=== PATIENT | male | born 1990 | race African-American/Black ===

== ENCOUNTER 2018-08-26 20:44 | Emergency (ER) | payer SELFPAY ==
--- NOTE | 2018-08-26 22:03 | EDM.PDOC ---
ED HPI GENERAL MEDICAL PROBLEM - General Chief Complaint: Gastrointestinal Problem Stated Complaint: NAUSEA LIGHT HEADED Time Seen by Provider: 08/26/18 20:48 Source of Information: Reports: Patient History Limitations: Reports: No Limitations - History of Present Illness INITIAL COMMENTS - FREE TEXT/NARRATIVE: This is a 28-year-old male. Since Wednesday night he's been having some nausea and lightheadedness and he says he's been getting some migraines but there is been no vomiting. He denies any problem with urinating and denies any diarrhea. He does complain of sores in his mouth like canker sores but he does have braces he's not sure if he got something from a girl he kissed at a bar this week or if this is just because of his lips and tongue rubbing against his braces. He does have a mild sore throat and he feels feverish at times but no documented fever. He has a dry cough as well. - Related Data Allergies Allergy/AdvReac Type Severity Reaction Status Date / Time No Known Allergies Allergy Verified 08/26/18 20:52 Home Meds: Home Meds . [No Known Home Meds] 08/26/18 [History] Past Medical History - Past Health History Medical/Surgical History: Denies Medical/Surgical History Social & Family History - Tobacco Use Smoking Status *Q: Never Smoker Second Hand Smoke Exposure: No - Caffeine Use Caffeine Use: Reports: None - Recreational Drug Use Recreational Drug Use: No ED ROS GENERAL - Review of Systems Review Of Systems: See Below Constitutional: Reports: Fever. Denies: Chills HEENT: Reports: Other (Complains of a sore tongue and sore upper and lower inner lips) Respiratory: Reports: Cough. Denies: Shortness of Breath, Sputum Cardiovascular: Reports: No Symptoms Endocrine: Reports: No Symptoms GI/Abdominal: Reports: Nausea. Denies: Diarrhea, Vomiting : Denies: Discharge, Dysuria Musculoskeletal: Reports: No Symptoms Skin: Reports: No Symptoms Neurological: Reports: No Symptoms Psychiatric: Reports: No Symptoms Hematologic/Lymphatic: Reports: No Symptoms ED EXAM, GI/ABD - Physical Exam Exam: See Below Exam Limited By: No Limitations General Appearance: Alert, WD/WN, No Apparent Distress Eyes: Bilateral: Normal Appearance Ears: Normal External Exam, Normal Canal, Normal TMs Nose: Normal Inspection Throat/Mouth: Normal Inspection, Normal Lips, Normal Voice, No Airway Compromise , Other (I don't see any discrete canker sores or white areas to suggest stomatitis, he does have a small abrasion on the right inner lower lip noted, other than that there is no acute findings, his tonsils were not enlarged and there is minimal inflammation noted) Head: Normocephalic Neck: Supple Respiratory/Chest: No Respiratory Distress, Lungs Clear, Normal Breath Sounds Cardiovascular: Regular Rate, Rhythm, No Murmur GI/Abdominal Exam: Soft Back Exam: Normal Inspection, Full Range of Motion Extremities: Normal Inspection, Normal Range of Motion Neurological: Alert, Oriented Psychiatric: Normal Affect, Normal Mood Skin Exam: Warm, Dry Course - Vital Signs Last Recorded V/S: Last Vital Signs Temp 98.9 F 08/26/18 20:52 Pulse 69 08/26/18 20:52 Resp 20 08/26/18 20:52 BP 138/82 08/26/18 20:52 Pulse Ox 98 08/26/18 20:52 - Orders/Labs/Meds Orders: Active Orders 24 hr Category Date Time Status CULTURE STREP A CONFIRMATION [RM] Stat Lab 08/26/18 21:34 Results Rapid Strep w/culture conf [STREP SCRN A RAPID W CULT Lab 08/26/18 21:34 Results CONF] [] Stat Labs: Laboratory Tests 08/26/18 Range/Units 21:40 WBC 4.60 (4.23-9.07) K/mm3 RBC 5.18 (4.63-6.08) M/mm3 Hgb 14.2 (13.7-17.5) gm/L Hct 42.1 (40.1-51.0) % MCV 81.3 (79.0-92.2) fl MCH 27.4 (25.7-32.2) pg MCHC 33.7 (32.2-35.5) g/dl RDW Std Deviation 41.8 (35.1-43.9) fL Plt Count 155 L (163-337) K/mm3 MPV 10.4 (9.4-12.3) fl Neut % (Auto) 39.8 (34.0-67.9) % Lymph % (Auto) 40.2 (21.8-53.1) % [facility] % (Auto) 17.0 H (5.3-12.2) % Eos % (Auto) 2.8 (0.8-7.0) Baso % (Auto) 0.2 (0.1-1.2) % Neut # (Auto) 1.83 (1.78-5.38) K/mm3 Lymph # (Auto) 1.85 (1.32-3.57) K/mm3 [facility] # (Auto) 0.78 (0.30-0.82) K/mm3 Eos # (Auto) 0.13 (0.04-0.54) K/mm3 Baso # (Auto) 0.01 (0.01-0.08) K/mm3 Manual Slide Review Normal smear - Re-Assessments/Exams Free Text/Narrative Re-Assessment/Exam: 08/26/18 22:35 I spoke to the patient regarding the CBC and the strep test both were negative. I believe he has a little viral syndrome causing his achiness and his nausea. His stomatitis could certainly be related to the viral infection as well. I suggested that he go home drink lots of fluids stay away from sugar and sleep as much as he can to get over these symptoms and if they worsen return to the ER. Departure - Departure Time of Disposition: 22:45 Disposition: Home, Self-Care 01 Condition: Good Clinical Impression: Viral syndrome, Stomatitis, viral - Discharge Information *PRESCRIPTION DRUG MONITORING PROGRAM REVIEWED*: Not Applicable *COPY OF PRESCRIPTION DRUG MONITORING REPORT IN PATIENT [place]: Not Applicable Instructions: Viral Illness, Adult Referrals: PCP,None [Primary Care Provider] - Forms: ED Department Discharge, ED Return to Work/School Form Additional Instructions: Home and sleep as much as possible, drink lots of fluids but avoid sugar since it suppresses your immune system, if you want to get rid of the tongue and lip pain get some vanilla cultured yogurt, it will say active cultures on the side of the container, and swish and swallow 3 times a day two big tablespoons, take some Tylenol or ibuprofen as needed for the aches and the pains, return to the ER if needed - My Orders Last 24 Hours: My Active Orders 08/26/18 21:34 CULTURE STREP A CONFIRMATION [RM] Stat Rapid Strep w/culture conf [STREP SCRN A RAPID W CULT CONF] [RM] Stat - Assessment/Plan Last 24 Hours: My Active Orders 08/26/18 21:34 CULTURE STREP A CONFIRMATION [RM] Stat Rapid Strep w/culture conf [STREP SCRN A RAPID W CULT CONF] [RM] Stat
== END 2018-08-26 22:55 | disposition home or self-care (01) ==
LOC: JD.ED 20:44
DX: K12.1 Other forms of stomatitis (principal); B34.9 Viral infection, unspecified
CPT/HCPCS: 36415; 85025; 87081; 87430; 99282; 99283